=== PATIENT | male | born 1985 | race African-American/Black ===

== ENCOUNTER 2017-08-29 16:33 | Emergency (ER) | payer MEDICAID ==
[~2017-08-29] VITALS: Ht 188 cm; Wt 74.8 kg
[2017-08-29 16:58] VITALS: BP 128/70
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
[2017-08-29] MEDS ORDERED: IBUPROFEN600 MG ORAL (18:28)
[2017-08-29] MEDS ORDERED: ROBAXIN500 MG PO (18:28)
[2017-08-29] MEDS ORDERED: LIDODERM700 M1 TOPIC (18:28)
[2017-08-29 18:53] VITALS: BP 128/70
== END 2017-08-29 18:56 | disposition home or self-care (01) ==
LOC: EMR 17:09
DX: M62.838 Other muscle spasm (principal); S46.812A Strain of other muscles, fascia and tendons at shoulder and upper arm level, left arm, initial encounter; V49.88XA Car occupant (driver) (passenger) injured in other specified transport accidents, initial encounter; W22.11XA Striking against or struck by driver side automobile airbag, initial encounter
CPT/HCPCS: 99284